=== PATIENT | female | born 1980 | race Caucasian/White ===

== ENCOUNTER 2018-12-22 00:08 | Emergency (ER) | payer MEDICAID ==
[~2018-12-22] VITALS: Ht 154.9 cm; Wt 78.3 kg
[~2018-12-22 00:08] MED LIST: ACET-709 PO; IBUP-1222 PO
--- NOTE | 2018-12-22 00:59 | NUR ---
Pt walked to room from lobby at this time.
--- NOTE | 2018-12-22 01:05 | NUR ---
Pt presents to ed c/o LLQ/LRQ painx2 days w/ hx of ectopic and ovarian cysts. States lmp ended 12/10. Denies any painful urination/n/v. Pt to rr to provide ua at this time.
--- NOTE | 2018-12-22 01:14 | NUR ---
Ua sent to the lab at this time.
[2018-12-22] MEDS ORDERED: OXYcodone/APAP 5/325MG TABLET PO ONE ×2 (01:30→03:00)
[2018-12-22] MEDS ORDERED: ONDANSETRON ODT 4 MG PO ONE (01:30)
[2018-12-22] MEDS ORDERED: ONDANSETRON ODT 4 MG ONE (01:32)
[2018-12-22] MEDS ORDERED: OXYcodone/APAP 5/325MG TABLET ONE ×2 (01:32→03:01)
[2018-12-22 01:33] LABS: BASOPHILS % (AUTO) 1 % (0-1); EOSINOPHILS # (AUTO) 0.21 x10^3/uL (0-0.4); EOSINOPHILS % (AUTO) 2 % (1-7); LYMPHOCYTES # (AUTO) 2.79 x10^3/uL (1-3.4); LYMPHOCYTES % (AUTO) 20 % (22-44); MD NO; MEAN CORPUSCULAR HEMOGLOBIN 30.5 pg (27.0-34.8); MEAN CORPUSCULAR HGB CONC 33.1 g/dL (32.4-35.8); MEAN CORPUSCULAR VOLUME 92.1 fL (80-100); MEAN PLATELET VOLUME 7.6 fL (7.4-10.4); MONOCYTES # (AUTO) 0.94 x10^3/uL (0.2-0.8); MONOCYTES % (AUTO) 7 % (2-9); NEUTROPHILS # (AUTO) 10.16 x10^3/uL (1.8-6.8); NEUTROPHILS % (AUTO) 72 % (42-75); PLATELET COUNT 281 x10^3/uL (130-400); RED BLOOD COUNT 5.07 x10^6/uL (3.82-5.3); RED CELL DISTRIBUTION WIDTH 13.2 % (9.6-15.2)
[2018-12-22 01:42] LABS: CULTURE INDICATED? YES; MICROSCOPIC INDICATED
[2018-12-22 01:42] LABS: ALANINE AMINOTRANSFERASE 38 U/L (12-78); ALBUMIN 3.5 g/dL (3.4-5.0); ANION GAP 5 mmol/L (5-15); CALCIUM 8.9 mg/dL (8.5-10.1); CHLORIDE 105 mmol/L (98-107); CREATININE 0.96 mg/dL (0.55-1.02)
[2018-12-22 01:47] LABS: ALKALINE PHOSPHATASE 97 U/L (45-117); BILIRUBIN,TOTAL 0.2 mg/dL (0.2-1.0); TOTAL PROTEIN 7.4 g/dL (6.4-8.2)
--- NOTE | 2018-12-22 02:31 | NUR ---
Pt in us.
--- NOTE | 2018-12-22 02:39 | NUR ---
Pt states no decrease in pain. Pa notified. Awaiting new orders.
[2018-12-22] MEDS ORDERED: KETOROLAC 30 MG/1 ML ONE (02:42)
[2018-12-22 02:47] VITALS: BP 126/71
[2018-12-22] MEDS ORDERED: KETOROLAC 60 MG/2 ML IM ONE (03:00)
--- NOTE | 2018-12-22 03:07 | NUR ---
Up for recheck. Awaiting md recheck.
[2018-12-22] MEDS ORDERED: NITROFURANTOIN (MACROBID) 100 MG CAPSULE PO ONE (04:00)
[2018-12-22] MEDS ORDERED: NITROFURANTOIN (MACROBID) 100 MG CAPSULE ONE (04:05)
== END 2018-12-22 04:13 | disposition home or self-care (01) ==
LOC: ED 02:50
DX: N30.01 Acute cystitis with hematuria (principal); N83.291 Other ovarian cyst, right side
CPT/HCPCS: 36415; 76830; 80053; 81001; 83690; 84703; 85025; 87077; 87086; 87186; 96372; 99284; J1885; Q0162

== ENCOUNTER 2018-12-30 23:00 | Inpatient (IN) | payer MEDICAID ==
[~2018-12-30] VITALS: Ht 156.2 cm; Wt 79.0 kg
--- NOTE | 2018-12-30 23:25 | NUR ---
SEEN HERE ONE WEEK AGO, "THEY FOUND AN ABCESS ON MY OVARY, I DID THE ANTIBIOTIC REGIMEN AND I'M NOT FEELING ANY BETTER"; DENIES N/V, C/O LEFT LOWER ABD, LEFT LOWER BACK AND LEFT LEG PAIN. MONITORS APPLIED, SIDERAILS UP X2, CALL LIGHT WITHIN REACH. PA AT BEDSIDE FOR EVAL
[2018-12-30] MEDS ORDERED: ONDANSETRON 2MG/ML, 2ML IVPush ONE (23:30)
--- NOTE | 2018-12-30 23:37 | NUR ---
PROVIDED PT WITH URINE CUP, PT STATED SHE IS NOT ABLE TO VOID AT THIS TIME
[2018-12-30] MEDS ORDERED: ONDANSETRON 2MG/ML, 2ML ONE (23:39)
[2018-12-30] MEDS ORDERED: MORPHINE SULFATE 4 MG/ML, 1ML ONE (23:40)
[2018-12-30] MEDS: MORPHINE SULFATE 4 MG/ML, 1ML IVPush PRN (23:42)
--- NOTE | 2018-12-30 23:45 | NUR ---
PT MEDICATED PER MAR
[2018-12-30 23:46] LABS: BASOPHILS # (AUTO) 0.05 x10^3/uL (0-0.1); BASOPHILS % (AUTO) 0 % (0-1); EOSINOPHILS # (AUTO) 0.24 x10^3/uL (0-0.4); EOSINOPHILS % (AUTO) 2 % (1-7); LYMPHOCYTES # (AUTO) 2.01 x10^3/uL (1-3.4); LYMPHOCYTES % (AUTO) 14 % (22-44); MD NO; MEAN CORPUSCULAR HEMOGLOBIN 30.4 pg (27.0-34.8); MEAN CORPUSCULAR HGB CONC 33.3 g/dL (32.4-35.8); MEAN CORPUSCULAR VOLUME 91.4 fL (80-100); MEAN PLATELET VOLUME 7.2 fL (7.4-10.4); MONOCYTES # (AUTO) 1.02 x10^3/uL (0.2-0.8); MONOCYTES % (AUTO) 7 % (2-9); NEUTROPHILS # (AUTO) 11.18 x10^3/uL (1.8-6.8); NEUTROPHILS % (AUTO) 77 % (42-75); PLATELET COUNT 349 x10^3/uL (130-400); RED BLOOD COUNT 4.38 x10^6/uL (3.82-5.3); RED CELL DISTRIBUTION WIDTH 12.7 % (9.6-15.2)
[2018-12-30 23:55] LABS: ALANINE AMINOTRANSFERASE 62 U/L (12-78); ALBUMIN 2.8 g/dL (3.4-5.0); ANION GAP 6 mmol/L (5-15); CALCIUM 8.1 mg/dL (8.5-10.1); CHLORIDE 107 mmol/L (98-107)
[2018-12-31] LABS: ALKALINE PHOSPHATASE 109 U/L (45-117); BILIRUBIN,TOTAL 0.2 mg/dL (0.2-1.0)
--- NOTE | 2018-12-31 00:05 | NUR ---
BREAK RN: PT TO CT VIA CHAD.
--- NOTE | 2018-12-31 00:41 | NUR ---
PT RESTING ON GURNEY, MONITORS IN PLACE, CALL LIGHT WITHIN REACH. PT STATED SHE IS STILL NOT ABLE TO VOID, STATED " I NEED FLUIDS IN MY IV FIRST". ERP UPDATED THAT PT REQUESTING IV FLUIDS TO BE ABLE TO PROVIDED URINE SAMPLE, ERP TO DISCUSS WITH PA
--- NOTE | 2018-12-31 02:00 | NUR ---
PT TO ULTRASOUND
[2018-12-31] MEDS ORDERED: MORPHINE SULFATE 4 MG/ML, 1ML ONE (02:35)
[2018-12-31] MEDS: MORPHINE SULFATE 4 MG/ML, 1ML IVPush PRN (02:36)
--- NOTE | 2018-12-31 02:36 | NUR ---
URINE SAMPLE AND SWABS TAKEN TO LAB. PT MEDICATED PER MAR
[2018-12-31 02:41] LABS: CLUE CELLS NONE SEEN (NONE SEEN); WET PREP WBCS FEW (FEW)
[2018-12-31 02:49] LABS: CULTURE INDICATED? YES; MICROSCOPIC INDICATED
[2018-12-31] MEDS ORDERED: METRONIDAZOLE PMX 500MG/100ML 100 ML IV ONE (03:00)
[2018-12-31] MEDS ORDERED: CEFOTETAN PMX 2GM/50ML 50 ML IV ONE (03:00)
[2018-12-31] MEDS ORDERED: DOXYCYCLINE 100 MG in DEXTROSE 5% 250 ML IV SCH (03:00)
[2018-12-31] MEDS ORDERED: SODIUM CHLORIDE 0.9% 1,000 ML IV ONE (03:09)
[2018-12-31] MEDS ORDERED: ONDANSETRON 2MG/ML, 2ML IVPush PRN (03:30)
[2018-12-31] MEDS ORDERED: SODIUM CHLORIDE FLUSH 10ML SYR IVF PRN (03:30)
[2018-12-31] MEDS ORDERED: HYDROmorphone 1 MG/ML, 1ML INJ IVPush PRN (03:30)
[2018-12-31] MEDS ORDERED: PROMETHAZINE 25 MG/ML, 1ML IM PRN (03:30)
[2018-12-31 04:04] VITALS: BP 114/77
[2018-12-31] MEDS ORDERED: HYDROmorphone 2 MG/ML, 1ML ONE (04:16)
[2018-12-31 04:24] VITALS: BP 114/77
[2018-12-31] MEDS ORDERED: OMNIPAQUE 350 MG/ML, 100ML BOTTLE ONE (05:18)
[2018-12-31] MEDS ORDERED: metroNIDAZOLE 500 MG TABLET PO ONE (07:00)
[2018-12-31] MEDS ORDERED: SODIUM CHLORIDE 0.9% 1,000 ML IV SCH (07:00)
[2018-12-31 07:06] VITALS: BP 103/71
[2018-12-31] MEDS: CEFOTETAN PMX 2GM/50ML 50 ML IV SCH ×2 (09:01→21:53)
[2018-12-31 15:10] VITALS: BP 105/73
[2018-12-31] MEDS: OXYcodone/APAP 5/325MG TABLET PO PRN (15:13)
[2018-12-31] MEDS: SODIUM CHLORIDE 0.9% 1,000 ML IV SCH (15:17)
[2018-12-31 16:03] LABS: AMPHETAMINE SCREEN, URINE Positive (Negative); BARBITURATE SCREEN, URINE Negative (Negative); BENZODIAZEPINE SCREEN, URINE Negative (Negative); CANNABINOID SCREEN, URINE Negative (Negative); COCAINE SCREEN, URINE Negative (Negative); METHADONE SCREEN, URINE Negative (Negative); OPIATE SCREEN, URINE Positive (Negative)
[2018-12-31 19:11] VITALS: BP 105/68
[2018-12-31] MEDS: IBUPROFEN 200 MG TABLET PO PRN (19:48)
[2019-01-01 00:11] VITALS: BP 100/66
[2019-01-01] MEDS: OXYcodone/APAP 5/325MG TABLET PO PRN (00:14)
[2019-01-01] MEDS ORDERED: AZITHROMYCIN 500 MG TABLET PO ONE (04:30)
[2019-01-01] MEDS: IBUPROFEN 200 MG TABLET PO PRN (04:43)
[2019-01-01] MEDS ORDERED: METR500T PO (05:11)
[2019-01-01] MEDS ORDERED: IBUP-1223 PO (05:13)
[2019-01-01] MEDS: SODIUM CHLORIDE 0.9% 1,000 ML IV SCH (05:23)
[2019-01-01 06:49] VITALS: BP 107/72
[2019-01-01] MEDS: CEFOTETAN PMX 2GM/50ML 50 ML IV SCH (08:52)
== END 2019-01-01 09:50 | disposition home or self-care (01) | DRG 759 ==
LOC: ED 12-31 00:27 → EDIP 12-31 03:09 → 4NOR 12-31 03:58
PROVIDERS: ADMIT Obstetrics & Gynecology; ATTEND Obstetrics & Gynecology
PROC: 0T9B70Z Drainage of Bladder with Drainage Device, Via Natural or Artificial Opening (ICD-10-PCS; principal; 2018-12-31)
DX: N73.9 Female pelvic inflammatory disease, unspecified (principal); N70.93 Salpingitis and oophoritis, unspecified; D72.829 Elevated white blood cell count, unspecified; A59.01 Trichomonal vulvovaginitis; N83.202 Unspecified ovarian cyst, left side
CPT/HCPCS: 36415; 74177; 76830; 80053; 80307; 81001; 83690; 84702; 85025; 87086; 87210; 87491; 87591; 87808; 96365; 96375; 96376; 99285; G0378; J1170; J2405; J7060; Q9967; J2270; J3490; J7030